=== PATIENT | female | born 1960 | race Caucasian/White ===

== ENCOUNTER 2020-12-05 12:16 | Emergency (ER) | payer MEDICARE ==
--- NOTE | 2020-12-05 12:52 | ERPHSYRPT ---
- History of Present Illness Source: other (Mother) Exam Limitations: other (Pt w advanced CP) Patient Subjective Stated Complaint: PT HERE FOR PAIN TO LEFT LOWER LEG, UNSURE OF INJURY, Triage Nursing Assessment: PT ALERT, RESP EASY, SKIN W/D/P. PT HAS HARD TIME COMMUNICATING DUE TO CP, SHE HAS BRUISING TO LEFT KNEE YELLOW IN COLOR, PT NOT TENDER TO TOUCH Physician History: 60 yo non-ambulatory wf w severe CP w L hip/knee pain x 1 wk. Mother denies any trauma. Method of Injury: unknown Occurred: other (1wk) Quality: constant Severity of Pain-Max: moderate Severity of Pain-Current: moderate Lower Extremities Pain: hip: left, knee: left Modifying Factors: Improves With: movement Associated Symptoms: none Allergies/Adverse Reactions: No Known Drug Allergies Allergy (Unverified 12/05/20 12:30) Hx Tetanus, Diphtheria Vaccination/Date Given: No Hx Influenza Vaccination/Date Given: No Hx Pneumococcal Vaccination/Date Given: No Immunizations Up to Date: Yes Travel Risk - International Travel Have you traveled outside of the country in past 3 weeks: No - Coronavirus Screening Are you exhibiting any of the following symptoms?: No Close contact with a COVID-19 positive Pt in past 14-21 Days: No - Vaccine Status Have you recieved a Covid-19 vaccination: No - Review of Systems Constitutional: No Symptoms Eyes: No Symptoms Ears, Nose, & Throat: No Symptoms Respiratory: No Symptoms Cardiac: No Symptoms Abdominal/Gastrointestinal: No Symptoms Genitourinary Symptoms: No Symptoms Skin: No Symptoms Neurological: No Symptoms Psychological: No Symptoms Endocrine: No Symptoms, Excessive Sweating Hematologic/Lymphatic: No Symptoms Immunological/Allergic: No Symptoms - Past Medical History Neurological History: Seizures, Other Cardiac History: Other Respiratory History: No Pertinent History Endocrine Medical History: No Pertinent History Musculoskeletal History: Fractures, Rheumatoid Arthritis Other Medical History: MALFORMATION OF SKULL AND BRAIN DAMAGE SINCE , HEART MURMUR, LACK OF HIP JOINTS, ESOPHAGEAL STRICTURES REQUIRING STRETCHING/SURGERY ABOUT EVERY 6 MONTHS, GASTRITIS. HX OF SEIZURES BUT OUTGREW THEM ABOUT 25 YEARS AGO. NO LONGER ON MEDICATIONS. FX RIGHT WRIST/FOREARM REQUIRING ORIF AND RECONSTRUCTION. - Past Surgical History Past Surgical History: Yes Gastrointestinal: Appendectomy Musculoskeletal: Orthopedic Surgery Female Surgical History: Hysterectomy - Social History Smoking Status: Never smoker Exposure to second hand smoke: No Drug Use: none Patient Lives Alone: No (MOM) Significant Family History: no pertinent family hx - Female History Hx Last Menstrual Period: HYSTER Hx Now: No - Nursing Vital Signs Nursing Vital Signs: Initial Vital Signs Temperature 97.2 F 12/05/20 12:21 Pulse Rate 75 12/05/20 12:21 Respiratory Rate 18 12/05/20 12:21 Blood Pressure 99/71 12/05/20 12:21 O2 Sat by Pulse Oximetry 99 12/05/20 12:21 Pain Scale Pain Intensity 2 WNL - Physical Exam General Appearance: no apparent distress Eyes, Ears, Nose, Throat Exam: normal ENT inspection Neck Exam: normal inspection, non-tender, supple Cardiovascular/Respiratory Exam: chest non-tender, normal breath sounds, regular rate/rhythm, heart sounds normal Gastrointestinal/Abdominal Exam: non-tender, soft Back Exam: normal inspection, normal range of motion Hips Exam: bilateral: no evidence of injury Knees Exam: left knee: ecchymosis Neuro/Tendon Exam: normal sensation, normal motor functions Mental Status Exam: alert, cooperative Skin Exam: normal color SpO2 Interpretation: normal SpO2: 99 O2 Delivery: Room Air - Radiology Exams Hip X-ray Interpretation: Discussed w/ radiologist (No fx) Knee X-ray Interpretation: Discussed w/ radiologist (DJD) Ordered Tests: Active Orders 24 hr Category Date Time Status HIP UNI (2V) INCL PEL IF DONE Stat Exams 12/05/20 13:15 Completed KNEE (3 VIEWS) Stat Exams 12/05/20 13:14 Completed - Progress Counseled pt/family regarding: diagnosis, need for follow-up, rad results - Departure Departure Disposition: Home Clinical Impression: DJD (degenerative joint disease) of knee, Degenerative joint disease of left hip Condition: Stable Critical Care Time: No Referrals: ANGELA SCHNEIDER NP [NON-STAFF PHY W/O PRIVILEGES] - Instructions: Osteoarthritis (DC) Additional Instructions: Motrin/Tylenol for pain Follow up with your family
--- NOTE | 2020-12-05 13:24 | XRAY ---
Indication: Pain. Comparison: None 4 view left knee demonstrates osteopenia and moderate tricompartmental degenerative changes. No other bony, articular, or soft tissue abnormalities.
--- NOTE | 2020-12-05 13:28 | XRAY ---
Indication: Pain. Comparison: None AP pelvis and 2 view left hip demonstrates osteopenia. Left femur head neck junction demonstrates slight bony bump as seen with cam-type femoral acetabular impingement. No other bony, articular, or soft tissue abnormalities.
[2020-12-05 13:42] VITALS: BP 135/78; PULSE 72
[2020-12-05 13:59] VITALS: O2SAT 99
== END 2020-12-05 14:06 | disposition home or self-care (01) ==
LOC: ED 12:16
DX: M17.12 Unilateral primary osteoarthritis, left knee (principal); M16.12 Unilateral primary osteoarthritis, left hip
CPT/HCPCS: 73502; 73562; 99283